=== PATIENT | male | born 1980 | race Two or more races ===

== ENCOUNTER 2018-01-09 20:52 | Emergency (ER) | payer MEDICAID ==
[~2018-01-09] VITALS: Ht 182.9 cm; Wt 117.9 kg
[~2018-01-09 20:52] MED LIST: NAPR500T31; NOR10T; TRAM300T9
[2018-01-09 22:09] LABS: Basophils # (auto) 0.1 uL; Basophils % (auto) 0.8 % (0.0-2.0); Eosinophils # (auto) 0.1 uL; Eosinophils % (auto) 0.7 % (0.0-7.0); Hematocrit 38.3 % (41.0-53.0); Hemoglobin 13.3 g/dL (13.5-17.5); Lymphocytes # (auto) 1.5 uL; Lymphocytes % (auto) 16.4 % (10.0-50.0); Mean Corpuscular Hemoglobin 33.7 pg (28.0-32.0); Mean Corpuscular Hgb Conc. 34.7 g/dL (32.0-36.0); Mean Corpuscular Volume 97.1 fL (80.0-100.0); Monocytes # (auto) 0.7 uL; Monocytes % (auto) 7.5 % (0.0-12.0); Neutrophils # (auto) 6.9 uL; Neutrophils % (auto) 74.6 % (37.0-80.0); Platelet Count (auto) 202 10^3/uL (140-450); Red Blood Cells 3.94 10^6/uL (4.5-5.90); Red Cell Distribution Width 13.3 % (11.8-14.3); White Blood Cell 9.3 10^3/uL (4.4-10.8)
[2018-01-09 22:19] LABS: Alanine Aminotransferase 15 U/L (16-61); Albumin 3.6 g/dL (3.4-5.0); Anion Gap 8 (5-15); Aspartate Aminotransferase 15 U/L (15-37); BUN/Creatinine Ratio 8.2; Blood Urea Nitrogen 8 mg/dL (7-18); Calcium 8.6 mg/dL (8.5-10.1); Carbon Dioxide 26 mmol/L (21-32); Chloride 104 mmol/L (98-107); GFR African American 110 mL/min; GFR Non-African American 91 mL/min; Glucose 91 mg/dL (74-106); Magnesium 2.3 mg/dL (1.6-2.6); Potassium 3.2 mmol/L (3.5-5.1); Sodium 138 mmol/L (136-145)
[2018-01-09 22:24] LABS: Alkaline Phosphatase 65 U/L (45-117); Bilirubin, Total 0.9 mg/dL (0.2-1.0); Total Protein 7.4 g/dL (6.4-8.2)
[2018-01-09 23:02] LABS: INR 1.05 (0.9-1.15); Partial Thromboplastin Time 24.3 sec (22.64-33.71); Prothrombin Time 11.4 sec (9.37-12.3)
[2018-01-10] MEDS ORDERED: SODIUM CHLORIDE 0.9% 3,000 ML IV ONE (02:30)
[2018-01-10 05:33] VITALS: BP 119/79
== END 2018-01-10 05:11 | disposition home or self-care (01) ==
LOC: ER 21:01
DX: K95.89 Other complications of other bariatric procedure (principal); E86.0 Dehydration; R55 Syncope and collapse; F17.210 Nicotine dependence, cigarettes, uncomplicated; M19.90 Unspecified osteoarthritis, unspecified site; Z90.49 Acquired absence of other specified parts of digestive tract; Z98.84 Bariatric surgery status
CPT/HCPCS: 36415; 70450; 71045; 80053; 82962; 83735; 84484; 85025; 85610; 85730; 93005; 96360; 96361

== ENCOUNTER 2022-12-10 08:26 | Inpatient (IN) | payer MEDICAID, OTHER ==
[~2022-12-10] VITALS: Ht 182.9 cm; Wt 136.8 kg
[2022-12-10] MEDS ORDERED: SODIUM CHLORIDE 0.9% 1,000 ML IV ONE ×2 (09:30)
[2022-12-10] MEDS ORDERED: HYDROmorphone HCL 2 MG/ML VL/or syr IV ONE ×2 (09:30→14:45)
[2022-12-10] MEDS ORDERED: ONDANSETRON HCL 4 MG/2 ML VIAL IV ONE (09:30)
[2022-12-10 09:36] LABS: Basophils # (auto) 0.1 10 ^3/uL (0-0.2); Basophils % (auto) 0.5 % (0.0-2.0); Eosinophils # (auto) 0 10 ^3/uL (0-0.8); Hematocrit 39.8 % (41.0-53.0); Hemoglobin 13.8 g/dL (13.5-17.5); Lymphocytes # (auto) 1.1 10 ^3/uL (0.4-5.4); Lymphocytes % (auto) 8.8 % (10.0-50.0); Mean Corpuscular Hemoglobin 30.2 pg (28.0-32.0); Mean Corpuscular Hgb Conc. 34.7 g/dL (32.0-36.0); Monocytes # (auto) 0.8 10 ^3/uL (0-1.3); Monocytes % (auto) 6.4 % (0.0-12.0); Neutrophils # (auto) 10.6 10 ^3/uL (1.6-8.6); Neutrophils % (auto) 84.3 % (37.0-80.0); Red Blood Cells 4.58 10^6/uL (4.5-5.90); Red Cell Distribution Width 14.8 % (11.8-14.3); White Blood Cell 12.6 10^3/uL (4.4-10.8)
[2022-12-10 09:56] LABS: Albumin 4.1 g/dL (3.4-5.0); Potassium 3.9 mmol/L (3.5-5.1)
[2022-12-10 09:59] LABS: BUN/Creatinine Ratio 10.3 (10.0-20.0); Bilirubin, Total 0.8 mg/dL (0.2-1.0); Total Protein 7.7 g/dL (6.4-8.2)
[2022-12-10] MEDS ORDERED: ACETAMINOPHEN 325 MG TAB PO PRN (12:15)
[2022-12-10 12:59] LABS: Cholesterol 141 mg/dL (< 200); HDL Cholesterol 58 mg/dL (40-59); LDL Cholesterol 84 mg/dL (< 100); Triglycerides 67 mg/dL (< 150)
[2022-12-10] MEDS: ONDANSETRON HCL 4 MG/2 ML VIAL IV PRN ×2 (13:25→18:31)
[2022-12-10] MEDS: MORPHINE SULFATE INJ 2 MG/ml SYRG IV PRN ×2 (13:25→18:33)
[2022-12-10] MEDS: HYDROcodone-ACET 5/325MG TAB PO PRN ×3 (14:31→23:26)
[2022-12-10 18:05] LABS: Urine Bacteria FEW /hpf (None Seen); Urine Blood Negative /uL (Negative); Urine Specific Gravity 1.024 (1.001-1.035); Urine WBC 1 /hpf (0 - 3)
[2022-12-10 18:20] LABS: Amphetamine Screen, Urine NEGATIVE (NEGATIVE); Barbiturate Scree,Urine NEGATIVE (NEGATIVE); Benzodiazephine Screen, Urine NEGATIVE (NEGATIVE); Cannabinoid Screen, Urine POSITIVE (NEGATIVE); Cocaine Screen, Urine NEGATIVE (NEGATIVE)
[2022-12-10 18:27] LABS: Opiate Scree,Urine POSITIVE (NEGATIVE); Phencyclidine Screen, Urine NEGATIVE (NEGATIVE)
[2022-12-11] MEDS: MORPHINE SULFATE INJ 2 MG/ml SYRG IV PRN ×2 (03:15→08:26)
[2022-12-11] MEDS: HYDROcodone-ACET 5/325MG TAB PO PRN ×2 (04:20→09:30)
[2022-12-11 05:00] VITALS: BP 132/75
[2022-12-11] MEDS ORDERED: ALPR2TAB6 PO (05:29)
[2022-12-11] MEDS ORDERED: DULO1CAP6 PO (05:29)
[2022-12-11] MEDS ORDERED: HYDR-4072 PO (05:29)
[2022-12-11] MEDS ORDERED: QUET400T13 PO (05:29)
[2022-12-11] MEDS ORDERED: HYDR-3682 PO (05:29)
[2022-12-11 06:15] LABS: Basophils # (auto) 0 10 ^3/uL (0-0.2); Basophils % (auto) 0.4 % (0.0-2.0); Eosinophils # (auto) 0 10 ^3/uL (0-0.8); Eosinophils % (auto) 0.1 % (0.0-7.0); Hematocrit 37.6 % (41.0-53.0); Hemoglobin 12.8 g/dL (13.5-17.5); Lymphocytes # (auto) 1.4 10 ^3/uL (0.4-5.4); Lymphocytes % (auto) 14.2 % (10.0-50.0); Mean Corpuscular Hgb Conc. 34.2 g/dL (32.0-36.0); Mean Corpuscular Volume 90.5 fL (80.0-100.0); Monocytes # (auto) 1.1 10 ^3/uL (0-1.3); Monocytes % (auto) 11.1 % (0.0-12.0); Neutrophils # (auto) 7.1 10 ^3/uL (1.6-8.6); Neutrophils % (auto) 74.2 % (37.0-80.0); Red Blood Cells 4.15 10^6/uL (4.5-5.90); White Blood Cell 9.6 10^3/uL (4.4-10.8)
[2022-12-11 06:29] LABS: Albumin 3.3 g/dL (3.4-5.0); BUN/Creatinine Ratio 11.9 (10.0-20.0); Calcium 8.2 mg/dL (8.5-10.1); Potassium 3.8 mmol/L (3.5-5.1)
[2022-12-11 07:16] LABS: Bilirubin, Total 1.7 mg/dL (0.2-1.0)
[2022-12-11] MEDS: ENOXAPARIN SOD 40 MG/0.4 ML SYRINGE SC SCH (08:24)
[2022-12-11 09:29] VITALS: BP 154/101
[2022-12-11 13:00] VITALS: BP 177/104
[2022-12-11] MEDS ORDERED: hydrOXYzine 25 MG TAB or CAP PO PRN (13:15)
[2022-12-11] MEDS ORDERED: DOCUSATE SOD 100 MG CAP PO PRN (13:15)
[2022-12-11] MEDS: hydrALAZINE HCL 20 MG/ML VL IV PRN (13:18)
[2022-12-11] MEDS: HYDROmorphone HCL 2 MG/ML VL/or syr IV PRN ×2 (13:21→17:26)
[2022-12-11 17:00] VITALS: BP 145/78
[2022-12-11] MEDS: HYDROcodone-ACET 10/325MG TAB PO PRN (21:10)
[2022-12-11 22:00] VITALS: BP 140/88
[2022-12-11] MEDS: QUEtiapine FUMARATE 100 MG TAB PO SCH (22:31)
[2022-12-12] MEDS: HYDROmorphone HCL 2 MG/ML VL/or syr IV PRN ×4 (00:29→21:21)
[2022-12-12 05:00] VITALS: BP 143/85
[2022-12-12] MEDS: HYDROcodone-ACET 10/325MG TAB PO PRN ×2 (05:26→11:58)
[2022-12-12] MEDS: DULoxetine HCL 30 MG CAP PO SCH (08:04)
[2022-12-12] MEDS: ENOXAPARIN SOD 40 MG/0.4 ML SYRINGE SC SCH (08:04)
[2022-12-12 09:36] VITALS: BP 129/79
[2022-12-12] MEDS: ONDANSETRON HCL 4 MG/2 ML VIAL IV PRN (09:57)
[2022-12-12 13:00] VITALS: BP 127/69
[2022-12-12 16:50] VITALS: BP 159/89
[2022-12-12 18:43] VITALS: BP 148/88
[2022-12-12] MEDS: QUEtiapine FUMARATE 100 MG TAB PO SCH (21:22)
[2022-12-12 22:00] VITALS: BP 148/91
[2022-12-13] VITALS (9 sets, daily range): BP systolic 142–165; BP diastolic 89–101
[2022-12-13] MEDS: HYDROmorphone HCL 2 MG/ML VL/or syr IV PRN ×3 (07:02→23:45)
[2022-12-13] MEDS ORDERED: GABA300C PO (09:32)
[2022-12-13] MEDS ORDERED: BACL10TA PO (09:32)
[2022-12-13] MEDS ORDERED: LIDO1.8P EXT (09:32)
[2022-12-13] MEDS ORDERED: MECL1TAB42 PO (09:32)
[2022-12-13] MEDS: DULoxetine HCL 30 MG CAP PO SCH (09:33)
[2022-12-13] MEDS: ENOXAPARIN SOD 40 MG/0.4 ML SYRINGE SC SCH (09:35)
[2022-12-13] MEDS: ALPRAZolam 0.5 MG TAB PO PRN (10:48)
[2022-12-13] MEDS: HYDROcodone-ACET 10/325MG TAB PO PRN ×2 (13:06→19:09)
[2022-12-13] MEDS: QUEtiapine FUMARATE 100 MG TAB PO SCH (22:00)
[2022-12-13] MEDS: methylPREDNISolone SOD SUCC 125 MG/2 ML VL IV SCH (22:29)
[2022-12-13] MEDS: BACLOFEN 10 MG TAB PO SCH (23:40)
[2022-12-14] MEDS: HYDROcodone-ACET 10/325MG TAB PO PRN ×4 (01:06→21:01)
[2022-12-14] MEDS: hydrALAZINE HCL 20 MG/ML VL IV PRN ×2 (01:14→17:33)
[2022-12-14 05:00] VITALS: BP 149/86
[2022-12-14] MEDS: methylPREDNISolone SOD SUCC 125 MG/2 ML VL IV SCH ×3 (06:34→21:21)
[2022-12-14] MEDS: HYDROmorphone HCL 2 MG/ML VL/or syr IV PRN ×3 (06:35→19:18)
[2022-12-14 09:00] VITALS: BP 167/90
[2022-12-14] MEDS: DULoxetine HCL 30 MG CAP PO SCH (09:47)
[2022-12-14] MEDS: BACLOFEN 10 MG TAB PO SCH ×2 (09:47→21:21)
[2022-12-14] MEDS: ENOXAPARIN SOD 40 MG/0.4 ML SYRINGE SC SCH (09:48)
[2022-12-14 13:00] VITALS: BP 153/89
[2022-12-14 16:45] VITALS: BP 157/89
[2022-12-14 20:00] VITALS: BP 156/91
[2022-12-14] MEDS: ALPRAZolam 0.5 MG TAB PO PRN (21:21)
[2022-12-14] MEDS: QUEtiapine FUMARATE 100 MG TAB PO SCH (21:21)
[2022-12-14 22:00] VITALS: BP 170/88
[2022-12-15] MEDS: HYDROmorphone HCL 2 MG/ML VL/or syr IV PRN ×4 (02:18→20:45)
[2022-12-15] MEDS: HYDROcodone-ACET 10/325MG TAB PO PRN ×4 (03:17→21:50)
[2022-12-15 05:00] VITALS: BP 155/84
[2022-12-15] MEDS: methylPREDNISolone SOD SUCC 125 MG/2 ML VL IV SCH ×3 (05:33→22:07)
[2022-12-15 08:00] VITALS: BP 148/81
[2022-12-15] MEDS: ENOXAPARIN SOD 40 MG/0.4 ML SYRINGE SC SCH (08:41)
[2022-12-15] MEDS: BACLOFEN 10 MG TAB PO SCH ×2 (08:41→22:07)
[2022-12-15] MEDS: DULoxetine HCL 30 MG CAP PO SCH (08:41)
[2022-12-15 09:00] VITALS: BP 148/81
[2022-12-15] MEDS: ALPRAZolam 0.5 MG TAB PO PRN ×2 (10:01→22:05)
[2022-12-15 13:00] VITALS: BP 145/86
[2022-12-15] MEDS ORDERED: HYDROmorphone HCL 2 MG/ML VL/or syr IV ONE (14:00)
[2022-12-15] MEDS ORDERED: HYDROmorphone HCL 2 MG/ML VL/or syr ONE (14:07)
[2022-12-15 17:00] VITALS: BP 170/102
[2022-12-15 22:00] VITALS: BP 152/87
[2022-12-15] MEDS: QUEtiapine FUMARATE 100 MG TAB PO SCH (22:00)
[2022-12-16] MEDS: HYDROmorphone HCL 2 MG/ML VL/or syr IV PRN ×4 (02:54→21:46)
[2022-12-16] MEDS: HYDROcodone-ACET 10/325MG TAB PO PRN ×4 (04:22→22:47)
[2022-12-16 05:00] VITALS: BP 130/85
[2022-12-16] MEDS: methylPREDNISolone SOD SUCC 125 MG/2 ML VL IV SCH ×3 (06:22→21:44)
[2022-12-16 08:00] VITALS: BP 140/81
[2022-12-16 08:58] VITALS: BP 140/81
[2022-12-16] MEDS: BACLOFEN 10 MG TAB PO SCH ×2 (09:03→21:45)
[2022-12-16] MEDS: DULoxetine HCL 30 MG CAP PO SCH (09:03)
[2022-12-16] MEDS: ENOXAPARIN SOD 40 MG/0.4 ML SYRINGE SC SCH (09:03)
[2022-12-16 13:00] VITALS: BP 147/90
[2022-12-16 17:00] VITALS: BP 141/78
[2022-12-16] MEDS: QUEtiapine FUMARATE 100 MG TAB PO SCH (21:45)
[2022-12-16] MEDS: ALPRAZolam 0.5 MG TAB PO PRN (21:48)
[2022-12-16 22:00] VITALS: BP 143/85
[2022-12-17] MEDS: HYDROmorphone HCL 2 MG/ML VL/or syr IV PRN ×4 (04:21→20:29)
[2022-12-17 05:00] VITALS: BP 143/86
[2022-12-17] MEDS: HYDROcodone-ACET 10/325MG TAB PO PRN ×4 (05:14→23:55)
[2022-12-17 05:36] LABS: Basophils # (auto) 0 10 ^3/uL (0-0.2); Basophils % (auto) 0.3 % (0.0-2.0); Eosinophils # (auto) 0 10 ^3/uL (0-0.8); Hematocrit 37.7 % (41.0-53.0); Hemoglobin 12.9 g/dL (13.5-17.5); Lymphocytes # (auto) 0.8 10 ^3/uL (0.4-5.4); Mean Corpuscular Hemoglobin 30.3 pg (28.0-32.0); Mean Corpuscular Hgb Conc. 34.1 g/dL (32.0-36.0); Monocytes # (auto) 0.9 10 ^3/uL (0-1.3); Monocytes % (auto) 6.1 % (0.0-12.0); Neutrophils # (auto) 12.3 10 ^3/uL (1.6-8.6); Neutrophils % (auto) 87.6 % (37.0-80.0); Nucleated Red Blood Cells % 0.1 %; Red Blood Cells 4.24 10^6/uL (4.5-5.90); Red Cell Distribution Width 15.1 % (11.8-14.3); White Blood Cell 14.1 10^3/uL (4.4-10.8)
[2022-12-17 05:52] LABS: BUN/Creatinine Ratio 29.6 (10.0-20.0); Calcium 8.3 mg/dL (8.5-10.1); Potassium 4.3 mmol/L (3.5-5.1)
[2022-12-17] MEDS: methylPREDNISolone SOD SUCC 125 MG/2 ML VL IV SCH ×3 (06:08→21:32)
[2022-12-17 09:00] VITALS: BP 106/71
[2022-12-17] MEDS: BACLOFEN 10 MG TAB PO SCH ×2 (11:14→21:32)
[2022-12-17] MEDS: DULoxetine HCL 30 MG CAP PO SCH (11:14)
[2022-12-17] MEDS: cefTRIAXone 1GM/50ML D5W 50 ML IV SCH (11:15)
[2022-12-17] MEDS: ENOXAPARIN SOD 40 MG/0.4 ML SYRINGE SC SCH (11:15)
[2022-12-17] MEDS ORDERED: ALPRAZolam 0.5 MG TAB PO PRN (12:15)
[2022-12-17] MEDS ORDERED: HYDROmorphone HCL 2 MG/ML VL/or syr IV ONE ×2 (12:30→15:15)
[2022-12-17 13:00] VITALS: BP 144/102
[2022-12-17] MEDS: LORazepam 2MG/ML-1ML VIAL IV PRN ×2 (15:56→20:02)
[2022-12-17] MEDS ORDERED: HALOPERIDOL LACTATE 5 MG/ML INJ VIAL IV PRN (16:15)
[2022-12-17 17:00] VITALS: BP 153/103
[2022-12-17] MEDS: QUEtiapine FUMARATE 100 MG TAB PO SCH (21:36)
[2022-12-17 21:50] VITALS: BP 155/87
[2022-12-18] MEDS: HYDROmorphone HCL 2 MG/ML VL/or syr IV PRN ×4 (00:32→13:18)
[2022-12-18 05:00] VITALS: BP 159/101
[2022-12-18] MEDS: methylPREDNISolone SOD SUCC 125 MG/2 ML VL IV SCH ×2 (05:52→14:00)
[2022-12-18] MEDS: HYDROcodone-ACET 10/325MG TAB PO PRN ×2 (05:55→12:16)
[2022-12-18 08:00] VITALS: BP 156/92
[2022-12-18] MEDS: DULoxetine HCL 30 MG CAP PO SCH (08:48)
[2022-12-18] MEDS: BACLOFEN 10 MG TAB PO SCH (08:48)
[2022-12-18] MEDS: cefTRIAXone 1GM/50ML D5W 50 ML IV SCH (08:48)
[2022-12-18] MEDS: ENOXAPARIN SOD 40 MG/0.4 ML SYRINGE SC SCH (08:49)
[2022-12-18 09:00] VITALS: BP 156/92
[2022-12-18] MEDS: hydrALAZINE HCL 20 MG/ML VL IV PRN (12:57)
[2022-12-18 13:00] VITALS: BP 165/91
[2022-12-18 13:48] VITALS: BP 148/90
== END 2022-12-18 14:41 | disposition short-term general hospital (02) | DRG 347 ==
LOC: ER 08:26 → EDBD 08:26 → OVERFLOW 12:17 → EAST 12-11 03:36
PROVIDERS: ADMIT Registered Nurse; ATTEND Nurse Practitioner Acute Care
DX: M48.061 Spinal stenosis, lumbar region without neurogenic claudication (principal); E66.01 Morbid (severe) obesity due to excess calories; G89.29 Other chronic pain; N39.0 Urinary tract infection, site not specified; F17.210 Nicotine dependence, cigarettes, uncomplicated; F32.A Depression, unspecified; F41.9 Anxiety disorder, unspecified; M54.16 Radiculopathy, lumbar region; W10.8XXA Fall (on) (from) other stairs and steps, initial encounter; M19.90 Unspecified osteoarthritis, unspecified site; Z20.822 Contact with and (suspected) exposure to COVID-19; Y93.89 Activity, other specified; Z68.41 Body mass index [BMI] 40.0-44.9, adult; Y92.89 Other specified places as the place of occurrence of the external cause; Y99.8 Other external cause status
CPT/HCPCS: 36415; 72131; 73700; 80048; 80053; 80061; 80307; 80320; 81001; 83036; 84443; 84484; 85025; 87426; 96361; 96374; 96375; 97110; 97163; 97530; G0378; J0696; J2405